=== PATIENT | male | born 1940 | race Caucasian/White ===

== ENCOUNTER → 2018-06-28 | Outpatient (CLI) | payer MEDICARE, OTHER | END | disposition home or self-care (01) | LOC: CVU 09:46 | PROVIDERS: ATTEND Internal Medicine Cardiovascular Disease | DX: I37.1 Nonrheumatic pulmonary valve insufficiency (principal); I35.0 Nonrheumatic aortic (valve) stenosis; I10 Essential (primary) hypertension; E78.5 Hyperlipidemia, unspecified; Z87.891 Personal history of nicotine dependence | CPT/HCPCS: 93306; 93880 ==

== ENCOUNTER 2019-12-08 18:25 | Inpatient (IN) | payer MEDICARE, OTHER ==
[~2019-12-08] VITALS: Ht 180.3 cm; Wt 126.0 kg
--- NOTE | 2019-12-08 18:38 | NUR ---
PT BIB BY CAT SENT FROM FOR "ABNORMAL EKG". PT STATED HE FELL IN [place] AND [place] SINCE HE HAS HAD RIGHT SIDE CHEST PAIN. PT HAS PACEMAKER. HOOKED UP TO CLOTHING EXAMINER. EKG IS BEING CONDUCTED. DR SHAFFER IS BEDSIDE. ACCOMPANIED BY
[2019-12-08] MEDS ORDERED: SODIUM CHLORIDE FLUSH 10ML SYR IVF ONE (19:00)
[2019-12-08] MEDS ORDERED: METOPROLOL 1 MG/ML, 5ML IVPush PRN (19:00)
[2019-12-08] MEDS ORDERED: METOPROLOL 1 MG/ML, 5ML ONE (19:06)
[2019-12-08 19:10] LABS: INTERNATIONAL NORMALIZED RATIO 0.92 (0.93-1.1); PROTHROMBIN TIME 9.7 Seconds (9.6-11.5)
[2019-12-08 19:11] LABS: ALANINE AMINOTRANSFERASE 20 U/L (12-78); ALBUMIN 3.3 g/dL (3.4-5.0); ANION GAP 9 mmol/L (5-15); CALCIUM 9.2 mg/dL (8.5-10.1); CHLORIDE 106 mmol/L (98-107); CREATININE 1.35 mg/dL (0.7-1.3)
[2019-12-08 19:14] LABS: ALKALINE PHOSPHATASE 130 U/L (45-117); BILIRUBIN,TOTAL 0.6 mg/dL (0.2-1.0); TOTAL PROTEIN 7.4 g/dL (6.4-8.2)
[2019-12-08] MEDS ORDERED: APIX5TAB PO (19:35)
[2019-12-08] MEDS ORDERED: ZINC50CA PO (19:53)
[2019-12-08] MEDS ORDERED: METF500T27 PO (19:53)
[2019-12-08] MEDS ORDERED: LEVO175T5 PO (19:53)
[2019-12-08] MEDS ORDERED: ATEN100T PO (19:53)
[2019-12-08] MEDS ORDERED: FURO-93 PO (19:53)
[2019-12-08] MEDS ORDERED: AMLO2.5T5 PO (19:53)
[2019-12-08] MEDS ORDERED: ATOR20TA37 PO (19:53)
[2019-12-08] MEDS ORDERED: ASPI-496 PO (19:53)
[2019-12-08] MEDS ORDERED: OMEG-123 PO (19:53)
[2019-12-08] MEDS ORDERED: GLIP5TAB10 PO (19:53)
[2019-12-08 19:54] LABS: BASOPHILS # (AUTO) 0.02 x10^3/uL (0-0.1); BASOPHILS % (AUTO) 0 % (0-1); EOSINOPHILS # (AUTO) 0.28 x10^3/uL (0-0.4); EOSINOPHILS % (AUTO) 3 % (1-7); LYMPHOCYTES # (AUTO) 2.36 x10^3/uL (1-3.4); LYMPHOCYTES % (AUTO) 26 % (22-44); MD NO; MEAN CORPUSCULAR HEMOGLOBIN 30.9 pg (27.5-34.5); MEAN CORPUSCULAR HGB CONC 34.1 g/dL (33.2-36.2); MEAN CORPUSCULAR VOLUME 90.7 fL (81-97); MEAN PLATELET VOLUME 8.8 fL (7.4-10.4); MONOCYTES # (AUTO) 0.75 x10^3/uL (0.2-0.8); MONOCYTES % (AUTO) 8 % (2-9); NEUTROPHILS # (AUTO) 5.76 x10^3/uL (1.8-6.8); NEUTROPHILS % (AUTO) 63 % (42-75); PLATELET COUNT 225 x10^3/uL (130-400); RED BLOOD COUNT 4.79 x10^6/uL (4.38-5.82); RED CELL DISTRIBUTION WIDTH 13.8 % (9.4-14.8)
--- NOTE | 2019-12-08 20:26 | NUR ---
PT IS RESTING IN [facility]. AWAITING HOSPITAL BED ON TELE FLOOR. NO NEEDS AT THIS TIME
--- NOTE | 2019-12-08 21:04 | NUR ---
PT RESTING IN [facility]. EATING A TURKEY SANDWICH FROM THE COFFEE CART. AWATING ROOM UPSTAIRS ON CARDIAC FLOOR
[2019-12-08 21:57] VITALS: BP 161/100
[2019-12-09] VITALS (12 sets, daily range): BP systolic 128–169; BP diastolic 77–120
[2019-12-09] MEDS ORDERED: LIDODERM 5% PATCH TD PRN
[2019-12-09] MEDS ORDERED: ONDANSETRON ODT 4 MG PO PRN
[2019-12-09] MEDS ORDERED: DOCUSATE 100 MG CAPSULE PO PRN
[2019-12-09] MEDS: hydrALAzine 20 MG/ML, 1ML IVPush PRN ×2 (01:24→12:41)
[2019-12-09] MEDS: ACETAMINOPHEN 325 MG TABLET PO PRN ×3 (03:50→23:07)
[2019-12-09 05:17] LABS: ANION GAP 7 mmol/L (5-15); CALCIUM 9.2 mg/dL (8.5-10.1); CHLORIDE 108 mmol/L (98-107); CREATININE 1.17 mg/dL (0.7-1.3)
[2019-12-09 05:57] LABS: BASOPHILS % (AUTO) 1 % (0-1); EOSINOPHILS # (AUTO) 0.35 x10^3/uL (0-0.4); EOSINOPHILS % (AUTO) 3 % (1-7); LYMPHOCYTES # (AUTO) 2.85 x10^3/uL (1-3.4); LYMPHOCYTES % (AUTO) 24 % (22-44); MD SCAN; MEAN CORPUSCULAR HEMOGLOBIN 30.8 pg (27.5-34.5); MEAN CORPUSCULAR HGB CONC 33.8 g/dL (33.2-36.2); MEAN CORPUSCULAR VOLUME 91.2 fL (81-97); MEAN PLATELET VOLUME 8.4 fL (7.4-10.4); MONOCYTES # (AUTO) 0.99 x10^3/uL (0.2-0.8); MONOCYTES % (AUTO) 8 % (2-9); NEUTROPHILS # (AUTO) 7.66 x10^3/uL (1.8-6.8); NEUTROPHILS % (AUTO) 64 % (42-75); PLATELET COUNT 184 x10^3/uL (130-400); RED BLOOD COUNT 4.79 x10^6/uL (4.38-5.82); RED CELL DISTRIBUTION WIDTH 13.7 % (9.4-14.8)
[2019-12-09] MEDS: LEVOTHYROXINE 175 MCG TABLET PO SCH (06:08)
[2019-12-09] MEDS: OMEGA-3/FISH OIL CAPSULE PO SCH (09:00)
[2019-12-09] MEDS ORDERED: AMLODIPINE 2.5 MG TABLET PO SCH (09:00)
[2019-12-09] MEDS ORDERED: ATENOLOL 100 MG TABLET PO SCH (09:00)
[2019-12-09] MEDS: ZINC SULFATE 220 MG CAPSULE PO SCH (09:00)
[2019-12-09] MEDS: ASPIRIN 81 MG TABLET EC PO SCH (09:53)
[2019-12-09] MEDS: APIXABAN 5 MG TABLET PO SCH ×2 (09:53→20:08)
[2019-12-09] MEDS: ATORVASTATIN 20 MG TABLET PO SCH (09:54)
[2019-12-09] MEDS: FUROSEMIDE 20 MG TABLET PO SCH (09:54)
[2019-12-09] MEDS: metFORMIN XR 500 MG TAB.ER.24H PO SCH ×2 (09:54→20:18)
[2019-12-09 15:36] LABS: MICROSCOPIC AUTO
[2019-12-09 15:40] LABS: CULTURE INDICATED? YES
[2019-12-09] MEDS: INSULIN LISPRO 100 UNITS/ML, PEN SQ-INSULIN SCH ×2 (16:30→20:19)
[2019-12-09] MEDS: CARVEDILOL 25 MG TABLET PO SCH (17:54)
[2019-12-10] VITALS (11 sets, daily range): BP systolic 115–162; BP diastolic 72–95
[2019-12-10] MEDS: CARVEDILOL 25 MG TABLET PO SCH ×2 (06:10→17:27)
[2019-12-10] MEDS: LEVOTHYROXINE 175 MCG TABLET PO SCH (06:11)
[2019-12-10] MEDS: INSULIN LISPRO 100 UNITS/ML, PEN SQ-INSULIN SCH ×4 (07:00→20:10)
[2019-12-10] MEDS: APIXABAN 5 MG TABLET PO SCH ×2 (08:21→20:10)
[2019-12-10] MEDS: ASPIRIN 81 MG TABLET EC PO SCH (08:21)
[2019-12-10] MEDS: OMEGA-3/FISH OIL CAPSULE PO SCH (08:21)
[2019-12-10] MEDS: AMLODIPINE 5 MG TABLET PO SCH (08:22)
[2019-12-10] MEDS: metFORMIN XR 500 MG TAB.ER.24H PO SCH ×2 (08:22→20:10)
[2019-12-10] MEDS: ATORVASTATIN 20 MG TABLET PO SCH (08:22)
[2019-12-10] MEDS: FUROSEMIDE 20 MG TABLET PO SCH (08:22)
[2019-12-10] MEDS: ZINC SULFATE 220 MG CAPSULE PO SCH (08:24)
[2019-12-10 09:16] LABS: ANION GAP 9 mmol/L (5-15); CHLORIDE 107 mmol/L (98-107)
[2019-12-10 09:18] LABS: CREATININE 1.22 mg/dL (0.7-1.3)
[2019-12-10 10:32] LABS: BASOPHILS # (AUTO) 0.02 x10^3/uL (0-0.1); BASOPHILS % (AUTO) 0 % (0-1); EOSINOPHILS # (AUTO) 0.34 x10^3/uL (0-0.4); EOSINOPHILS % (AUTO) 4 % (1-7); LYMPHOCYTES # (AUTO) 2.08 x10^3/uL (1-3.4); LYMPHOCYTES % (AUTO) 25 % (22-44); MD NO; MEAN CORPUSCULAR HEMOGLOBIN 30.9 pg (27.5-34.5); MEAN CORPUSCULAR HGB CONC 34.2 g/dL (33.2-36.2); MEAN CORPUSCULAR VOLUME 90.4 fL (81-97); MEAN PLATELET VOLUME 8.9 fL (7.4-10.4); MONOCYTES # (AUTO) 0.57 x10^3/uL (0.2-0.8); MONOCYTES % (AUTO) 7 % (2-9); NEUTROPHILS # (AUTO) 5.42 x10^3/uL (1.8-6.8); NEUTROPHILS % (AUTO) 64 % (42-75); PLATELET COUNT 199 x10^3/uL (130-400); RED BLOOD COUNT 4.66 x10^6/uL (4.38-5.82); RED CELL DISTRIBUTION WIDTH 13.9 % (9.4-14.8)
[2019-12-10] MEDS: GABAPENTIN 300 MG CAPSULE PO SCH ×2 (10:33→17:27)
[2019-12-10] MEDS ORDERED: GABA300C10 PO (15:21)
[2019-12-10] MEDS ORDERED: INSU100I11 SQ-INSULIN (15:21)
[2019-12-10] MEDS ORDERED: CARV25TA12 PO (15:21)
[2019-12-10] MEDS ORDERED: AMLO-150 PO (15:21)
[2019-12-10] MEDS ORDERED: NITR0.4T41 SL (15:28)
[2019-12-11] MEDS: GABAPENTIN 300 MG CAPSULE PO SCH ×3 (01:13→16:59)
[2019-12-11 02:16] VITALS: BP 123/80
[2019-12-11 06:19] VITALS: BP 115/76
[2019-12-11] MEDS: LEVOTHYROXINE 175 MCG TABLET PO SCH (06:23)
[2019-12-11] MEDS: CARVEDILOL 25 MG TABLET PO SCH ×2 (06:23→16:59)
[2019-12-11 06:38] VITALS: BP 102/67
[2019-12-11 08:56] VITALS: BP 112/75
[2019-12-11] MEDS: ASPIRIN 81 MG TABLET EC PO SCH (09:10)
[2019-12-11] MEDS: OMEGA-3/FISH OIL CAPSULE PO SCH (09:11)
[2019-12-11] MEDS: APIXABAN 5 MG TABLET PO SCH (09:11)
[2019-12-11] MEDS: FUROSEMIDE 20 MG TABLET PO SCH (09:12)
[2019-12-11] MEDS: ATORVASTATIN 20 MG TABLET PO SCH (09:13)
[2019-12-11] MEDS: ZINC SULFATE 220 MG CAPSULE PO SCH (09:14)
[2019-12-11] MEDS: AMLODIPINE 5 MG TABLET PO SCH (09:14)
[2019-12-11] MEDS: INSULIN LISPRO 100 UNITS/ML, PEN SQ-INSULIN SCH ×3 (09:15→16:17)
[2019-12-11] MEDS: metFORMIN XR 500 MG TAB.ER.24H PO SCH (09:15)
[2019-12-11 12:21] VITALS: BP 129/84
== END 2019-12-11 18:04 | DRG 683 ==
LOC: ED 20:36 → EDIP 21:09 → 5SO 21:39
PROVIDERS: ADMIT Internal Medicine; ATTEND Hospitalist
DX: N17.9 Acute kidney failure, unspecified (principal); D68.59 Other primary thrombophilia; I50.42 Chronic combined systolic (congestive) and diastolic (congestive) heart failure; I48.0 Paroxysmal atrial fibrillation; I11.0 Hypertensive heart disease with heart failure; E03.9 Hypothyroidism, unspecified; D72.829 Elevated white blood cell count, unspecified; E66.9 Obesity, unspecified; Z68.38 Body mass index [BMI] 38.0-38.9, adult; E78.5 Hyperlipidemia, unspecified; G62.9 Polyneuropathy, unspecified; E11.40 Type 2 diabetes mellitus with diabetic neuropathy, unspecified; I25.10 Atherosclerotic heart disease of native coronary artery without angina pectoris; I37.1 Nonrheumatic pulmonary valve insufficiency; Z66 Do not resuscitate; Z79.01 Long term (current) use of anticoagulants; Z82.3 Family history of stroke; Z85.118 Personal history of other malignant neoplasm of bronchus and lung; Z87.891 Personal history of nicotine dependence; Z95.0 Presence of cardiac pacemaker; Z88.8 Allergy status to other drugs, medicaments and biological substances
CPT/HCPCS: 36415; 70450; 71045; 71250; 80048; 80053; 81001; 82962; 83036; 83735; 84443; 85025; 85610; 85730; 87086; 93005; 93306; 93880; 96374; 99285; G0378; J0360; J1815

== ENCOUNTER 2020-03-04 13:04 | Emergency (ER) | payer MEDICARE, OTHER ==
[~2020-03-04] VITALS: Ht 182.9 cm; Wt 122.8 kg
[~2020-03-04 13:04] MED LIST: AMLO-150 PO; AMLO2.5T5 PO; APIX5TAB PO; ASPI-496 PO; ATEN100T PO; ATOR20TA37 PO; CARV25TA12 PO; FURO-93 PO; GABA300C10 PO; GLIP5TAB10 PO; INSU100I11 SQ-INSULIN; LEVO175T5 PO; METF500T27 PO; NITR0.4T41 SL; OMEG-123 PO; ZINC50CA PO
[2020-03-04 13:06] VITALS: BP 140/84
[2020-03-04] MEDS ORDERED: MICROFIBRILLAR COLLAGEN 1 GM TP ONE (13:34)
[2020-03-04] MEDS: MICROFIBRILLAR COLLAGEN 1 GM TP ONE ×2 (13:35→14:00)
--- NOTE | 2020-03-04 13:35 | NUR ---
Kiel given to MD Escobar.
--- NOTE | 2020-03-04 13:45 | NUR ---
R FOREARM WOUND BANDAGED PER ORDERS, SEE WOUND CARE NOTE. PT TOLERATED WELL.
--- NOTE | 2020-03-04 14:19 | NUR ---
PT AND EAGER TO LEAVE, DID NOT WANT TO WAIT FOR D/C PAPERS. WOUND CARE INSTRUCTIONS & EXTRA SUPPLIES PROVIDED. PT AMBULATED OUT OF ED WITH CANE WITHOUT DIFFICULTY.
[2020-03-04] MEDS ORDERED: SULFAMETH./TRIMETHOPRIM DS 800MG/160MG TABLET PO ONE (14:30)
== END 2020-03-04 14:21 | disposition home or self-care (01) ==
LOC: ED 13:53
DX: S50.811A Abrasion of right forearm, initial encounter (principal); I11.0 Hypertensive heart disease with heart failure; I50.9 Heart failure, unspecified; E11.9 Type 2 diabetes mellitus without complications; I48.91 Unspecified atrial fibrillation; Z95.0 Presence of cardiac pacemaker; Z87.891 Personal history of nicotine dependence; Z85.118 Personal history of other malignant neoplasm of bronchus and lung; W22.8XXA Striking against or struck by other objects, initial encounter; Y93.89 Activity, other specified; Y92.89 Other specified places as the place of occurrence of the external cause; Y99.8 Other external cause status
CPT/HCPCS: 99282

== ENCOUNTER → 2020-07-16 | Outpatient (CLI) | payer MEDICARE, OTHER ==
[~2020-07-16] MED LIST changes: +ASCO100019 PO; +CARV12.5 PO; +GABA600T7 PO; +GLIP5TAB22 PO; +MULT-826 PO
[2020-07-16 15:44] LABS: ALBUMIN 3.1 g/dL (3.4-5.0); ANION GAP 7 mmol/L (5-15); CALCIUM 9.3 mg/dL (8.5-10.1); CHLORIDE 107 mmol/L (98-107)
[2020-07-16 15:45] LABS: BASOPHILS # (AUTO) 0.04 x10^3/uL (0-0.1); BASOPHILS % (AUTO) 0 % (0-1); EOSINOPHILS # (AUTO) 0.92 x10^3/uL (0-0.4); EOSINOPHILS % (AUTO) 10 % (1-7); LYMPHOCYTES # (AUTO) 2.36 x10^3/uL (1-3.4); LYMPHOCYTES % (AUTO) 26 % (22-44); MD NO; MEAN CORPUSCULAR HEMOGLOBIN 24.1 pg (27.5-34.5); MEAN CORPUSCULAR HGB CONC 31.5 g/dL (33.2-36.2); MEAN CORPUSCULAR VOLUME 76.3 fL (81-97); MEAN PLATELET VOLUME 9.4 fL (7.4-10.4); MONOCYTES # (AUTO) 0.62 x10^3/uL (0.2-0.8); MONOCYTES % (AUTO) 7 % (2-9); NEUTROPHILS # (AUTO) 5.23 x10^3/uL (1.8-6.8); NEUTROPHILS % (AUTO) 57 % (42-75); PLATELET COUNT 222 x10^3/uL (130-400); RED BLOOD COUNT 4.64 x10^6/uL (4.38-5.82)
[2020-07-16 15:49] LABS: ALANINE AMINOTRANSFERASE 17 U/L (12-78); ALKALINE PHOSPHATASE 133 U/L (45-117); BILIRUBIN,TOTAL 0.2 mg/dL (0.2-1.0); CREATININE 1.52 mg/dL (0.7-1.3); TOTAL PROTEIN 7.2 g/dL (6.4-8.2)
== END | disposition home or self-care (01) ==
LOC: CFH 13:00
PROVIDERS: ATTEND Nurse Practitioner Primary Care
DX: C34.12 Malignant neoplasm of upper lobe, left bronchus or lung (principal)
CPT/HCPCS: 36415; 80053; 85025

== ENCOUNTER 2020-07-31 10:08 | Outpatient (CLI) | payer MEDICARE, OTHER ==
[2020-07-31] MEDS ORDERED: OMNIPAQUE 350 MG/ML, 100ML BOTTLE ONE (11:20)
== END 2020-07-31 23:59 | disposition home or self-care (01) ==
LOC: CFH 10:08
PROVIDERS: ATTEND Internal Medicine Hematology & Oncology
DX: C34.12 Malignant neoplasm of upper lobe, left bronchus or lung (principal); K80.20 Calculus of gallbladder without cholecystitis without obstruction; K57.30 Diverticulosis of large intestine without perforation or abscess without bleeding; J98.4 Other disorders of lung; R59.9 Enlarged lymph nodes, unspecified; R91.1 Solitary pulmonary nodule; N28.1 Cyst of kidney, acquired; M47.9 Spondylosis, unspecified; Z90.2 Acquired absence of lung [part of]
CPT/HCPCS: 71260; 74177; Q9967

== ENCOUNTER → 2020-09-12 | Outpatient (CLI) | payer MEDICARE, OTHER | END | disposition home or self-care (01) | LOC: CVU 12:29 | PROVIDERS: ATTEND Physician Assistant Medical | DX: Z01.810 Encounter for preprocedural cardiovascular examination (principal); I25.10 Atherosclerotic heart disease of native coronary artery without angina pectoris; I10 Essential (primary) hypertension; E78.5 Hyperlipidemia, unspecified; E11.9 Type 2 diabetes mellitus without complications; I08.8 Other rheumatic multiple valve diseases | CPT/HCPCS: 93306 ==